=== PATIENT | female | born 1955 | race Caucasian/White ===

== ENCOUNTER → 2022-10-21 | Outpatient (CLI) | payer MEDICARE ==
[2022-10-21 10:11] LABS: HEMATOCRIT 34.8 % (37.0-47.0); MEAN CELL VOLUME 95.9 fl (81.0-99.0); MEAN CORPUSCULAR HGB 32.2 pg (27.0-31.0); MEAN CORPUSCULAR HGB CONC 33.6 g/dl (33.0-37.0); MEAN PLATELET VOLUME 9.7 fl (9.6-12.3); RED BLOOD COUNT 3.63 10*6/uL (4.10-5.10); WHITE BLOOD COUNT 6.6 10*3/uL (4.8-10.8)
[2022-10-21 10:19] LABS: URINE CREATININE RANDOM 82.2 mg/dL
[2022-10-21 10:27] LABS: POTASSIUM 4.4 mmol/L (3.4-5.1); TOTAL PROTEIN 6.6 gm/dL (6.0-8.0)
[2022-10-21 11:29] LABS: VITAMIN D, 25-HYDROXY 113.9 ng/mL (30-100)
== END | disposition home or self-care (01) ==
LOC: LAB 09:18
PROVIDERS: ATTEND Internal Medicine
DX: E11.22 Type 2 diabetes mellitus with diabetic chronic kidney disease (principal); N18.30 Chronic kidney disease, stage 3 unspecified

== ENCOUNTER → 2023-02-16 | Outpatient (CLI) | payer MEDICARE ==
[2023-02-16 12:27] LABS: HEMATOCRIT 35.9 % (37.0-47.0); MEAN CORPUSCULAR HGB 31.2 pg (27.0-31.0); MEAN CORPUSCULAR HGB CONC 32.9 g/dl (33.0-37.0); MEAN PLATELET VOLUME 9.5 fl (9.6-12.3); RED BLOOD COUNT 3.78 10*6/uL (4.10-5.10); RED CELL DISTRI WIDTH 12.4 % (0-14.5); WHITE BLOOD COUNT 6.1 10*3/uL (4.8-10.8)
[2023-02-16 12:56] LABS: POTASSIUM 4.6 mmol/L (3.4-5.1); TOTAL PROTEIN 6.5 gm/dL (6.0-8.0)
[2023-02-16 12:58] LABS: VITAMIN D, 25-HYDROXY 66.2 ng/mL (30-100)
[2023-02-17 05:06] LABS: IMMUNOGLOBULIN G, QNT 630 mg/dL (586-1602)
[2023-02-17 07:06] LABS: IMMUNOGLOBULIN M, QNT 62 mg/dL (26-217)
== END ==
LOC: LAB 12:05
PROVIDERS: ATTEND Internal Medicine
DX: E11.9 Type 2 diabetes mellitus without complications (principal); N18.30 Chronic kidney disease, stage 3 unspecified

== ENCOUNTER → 2023-06-24 | Outpatient (CLI) | payer OTHER ==
[2023-06-24 14:22] LABS: HEMATOCRIT 35.5 % (37.0-47.0); MEAN CELL VOLUME 93.2 fl (81.0-99.0); MEAN CORPUSCULAR HGB 31.5 pg (27.0-31.0); MEAN CORPUSCULAR HGB CONC 33.8 g/dl (33.0-37.0); MEAN PLATELET VOLUME 10.2 fl (9.6-12.3); RED BLOOD COUNT 3.81 10*6/uL (4.10-5.10); RED CELL DISTRI WIDTH 12.5 % (0-14.5); WHITE BLOOD COUNT 6.4 10*3/uL (4.8-10.8)
[2023-06-24 16:13] LABS: POTASSIUM 4.9 mmol/L (3.4-5.1); TOTAL PROTEIN 6.5 gm/dL (6.0-8.0)
[2023-06-24 21:35] LABS: BILIRUBIN Negative (Negative); BLOOD Negative (Negative); CLARITY Cloudy (Clear); COLOR Yellow (Yellow); GLUCOSE Negative (Negative); KETONE Negative (Negative); LEUKO ESTERASE 1+ (Negative); NITRITE Negative (Negative); PH 5.5 (4.5-8.0); UROBILINOGEN 0.2 E.U./dl (0.0-1.0)
[2023-06-24 21:56] LABS: URINE CREATININE RANDOM 75.88 mg/dL
[2023-06-24 22:15] LABS: BACTERIA 3+; WBC 16-20 wbc/hpf (0-5)
== END | disposition home or self-care (01) ==
LOC: LAB 12:32
PROVIDERS: ATTEND Internal Medicine
DX: E11.22 Type 2 diabetes mellitus with diabetic chronic kidney disease (principal); N18.4 Chronic kidney disease, stage 4 (severe)

== ENCOUNTER → 2023-11-16 | Outpatient (CLI) | payer MEDICARE ==
[2023-11-16 16:25] LABS: MEAN CELL VOLUME 92.8 fl (81.0-99.0); MEAN CORPUSCULAR HGB 29.4 pg (27.0-31.0); MEAN CORPUSCULAR HGB CONC 31.7 g/dl (33.0-37.0); MEAN PLATELET VOLUME 9.1 fl (9.6-12.3); RED BLOOD COUNT 3.88 10*6/uL (4.10-5.10); RED CELL DISTRI WIDTH 12.6 % (0-14.5); WHITE BLOOD COUNT 8.6 10*3/uL (4.8-10.8)
[2023-11-16 17:05] LABS: POTASSIUM 4.5 mmol/L (3.4-5.1)
[2023-11-16 17:09] LABS: VITAMIN D, 25-HYDROXY 58.8 ng/mL (30-100)
== END | disposition home or self-care (01) ==
LOC: LAB 16:12
PROVIDERS: ATTEND Internal Medicine
DX: E11.9 Type 2 diabetes mellitus without complications (principal); N18.4 Chronic kidney disease, stage 4 (severe)

== ENCOUNTER → 2023-12-28 | Outpatient (CLI) | payer MEDICARE ==
[2023-12-28 14:37] LABS: POTASSIUM 5.1 mmol/L (3.4-5.1)
== END | disposition home or self-care (01) ==
LOC: LAB 13:38
PROVIDERS: ATTEND Internal Medicine
DX: I12.9 Hypertensive chronic kidney disease with stage 1 through stage 4 chronic kidney disease, or unspecified chronic kidney disease (principal); E11.22 Type 2 diabetes mellitus with diabetic chronic kidney disease; N18.4 Chronic kidney disease, stage 4 (severe)

== ENCOUNTER → 2024-03-30 | Outpatient (CLI) | payer MEDICARE ==
[2024-03-30 12:50] LABS: MEAN CELL VOLUME 90.7 fl (81.0-99.0); MEAN CORPUSCULAR HGB 28.8 pg (27.0-31.0); MEAN CORPUSCULAR HGB CONC 31.8 g/dl (33.0-37.0); MEAN PLATELET VOLUME 9.8 fl (9.6-12.3); RED BLOOD COUNT 3.64 10*6/uL (4.10-5.10); RED CELL DISTRI WIDTH 14.8 % (0-14.5); WHITE BLOOD COUNT 6.5 10*3/uL (4.8-10.8)
[2024-03-30 13:20] LABS: URINE CREATININE RANDOM 181.37 mg/dL
[2024-03-30 13:29] LABS: TOTAL PROTEIN 6.9 gm/dL (6.0-8.0)
[2024-03-30 13:32] LABS: VITAMIN D, 25-HYDROXY 79.5 ng/mL (30-100)
== END | disposition home or self-care (01) ==
LOC: LAB 12:20
PROVIDERS: ATTEND Internal Medicine
DX: I12.9 Hypertensive chronic kidney disease with stage 1 through stage 4 chronic kidney disease, or unspecified chronic kidney disease (principal); E11.22 Type 2 diabetes mellitus with diabetic chronic kidney disease; N18.4 Chronic kidney disease, stage 4 (severe)

== ENCOUNTER → 2024-06-01 | Outpatient (CLI) | payer MEDICARE ==
[2024-06-01 12:55] LABS: HEMATOCRIT 34.4 % (37.0-47.0); MEAN CELL VOLUME 92.2 fl (81.0-99.0); MEAN CORPUSCULAR HGB 29.5 pg (27.0-31.0); MEAN PLATELET VOLUME 9.7 fl (9.6-12.3); RED BLOOD COUNT 3.73 10*6/uL (4.10-5.10); RED CELL DISTRI WIDTH 14.3 % (0-14.5); WHITE BLOOD COUNT 7.9 10*3/uL (4.8-10.8)
[2024-06-01 13:20] LABS: POTASSIUM 4.8 mmol/L (3.4-5.1); TOTAL PROTEIN 6.9 gm/dL (6.0-8.0)
[2024-06-01 13:23] LABS: VITAMIN D, 25-HYDROXY 79.1 ng/mL (30-100)
[2024-06-01 15:43] LABS: URINE CREATININE RANDOM 137.18 mg/dL
== END | disposition home or self-care (01) ==
LOC: LAB 12:23
PROVIDERS: ATTEND Internal Medicine
DX: E55.9 Vitamin D deficiency, unspecified (principal); D63.1 Anemia in chronic kidney disease

== ENCOUNTER 2025-03-26 12:37 | Emergency (ER) | payer MEDICARE ==
[~2025-03-26] VITALS: Ht 160 cm; Wt 90.7 kg
[2025-03-26] MEDS ORDERED: PREDNISONE20 M1 PO (14:47)
[2025-03-26] MEDS ORDERED: Acetaminophen/Hydrocodone 5 MG/325 MG TABLET PO ONE (14:50)
== END 2025-03-26 15:04 | disposition home or self-care (01) ==
LOC: ED 12:37
DX: M54.31 Sciatica, right side (principal); Z91.013 Allergy to seafood